=== PATIENT | female | born 1935 | race Caucasian/White ===

== ENCOUNTER 2020-03-21 15:41 | Inpatient (IN) | payer MEDICARE, MEDICAID ==
[~2020-03-21] VITALS: Ht 152.4 cm; Wt 57.8 kg
[~2020-03-21 15:41] MED LIST: ASPI-496 PO; ATEN25TA PO; CHOL100014 PO; CYAN1TAB29 PO; LOVA20TA2 PO; MEPE50TA PO; OMEG1CAP24 PO
--- NOTE | 2020-03-21 16:12 | NUR ---
NAYELI, RESIDENT BS FOR EXAM. PT HX PROVIDED BY PT'S TWO LADY FRIENDS. PT SEEN AT [facility] FOR PAIN, MULTIPLE TIMES - LAST VISIT MONDAY . BM MONDAY NOC. SAW PCP ON MONDAY. [facility] TODAY. REPORTED DECREASED APPETITE. TODAY: HAD PAIN LT SHOULDER, LT LOWER RIB PAIN - DENIES FALLING. LAST BM: (PER FRIENDS) OR (PER PT). INTERMITTENT DIZZINESS, WEAKNESS. DENIES SOB, DYSPNEA. [place] TX: IMAGING, EKG, IV 20G LAC, ASA 324MG, REGLAN 10MG, ZOFRAN 4MG, COMPAZINE, HEPARIN DRIP. HEPARIN DRIP HELD UPON ARRIVAL TO [facility] - WAS RUNNING AT 12U/KG/HR (6.5ML/HR) VIA PUMP. PT LIVES ALONE AT [facility].
[2020-03-21] MEDS ORDERED: NEXIUM (16:37)
[2020-03-21] MEDS ORDERED: LISI10TA2 PO (16:37)
[2020-03-21] MEDS ORDERED: ATOR20TA86 PO (16:37)
[2020-03-21] MEDS ORDERED: MAGNESIUM CHLORIDE PO (16:37)
--- NOTE | 2020-03-21 16:51 | NUR ---
PT ENDORSED TO BREAK RN. XR AT BS
--- NOTE | 2020-03-21 16:57 | NUR ---
X-RAY, LAB IN ROOM
[2020-03-21 17:25] LABS: MEAN CORPUSCULAR HEMOGLOBIN 31.8 pg (27.0-34.8); MEAN CORPUSCULAR HGB CONC 32.3 g/dL (32.4-35.8); MEAN PLATELET VOLUME 9.4 fL (7.4-10.4); PLATELET COUNT 106 x10^3/uL (130-400)
[2020-03-21 17:31] LABS: ALANINE AMINOTRANSFERASE 131 U/L (12-78); ALBUMIN 2.5 g/dL (3.4-5.0); ANION GAP 8 mmol/L (5-15); CALCIUM 8.3 mg/dL (8.5-10.1); CHLORIDE 107 mmol/L (98-107); CREATININE 0.82 mg/dL (0.55-1.02)
[2020-03-21 17:35] LABS: ALKALINE PHOSPHATASE 174 U/L (45-117); BILIRUBIN,TOTAL 0.6 mg/dL (0.2-1.0); TOTAL PROTEIN 6.1 g/dL (6.4-8.2)
[2020-03-21 17:50] LABS: MD YES
--- NOTE | 2020-03-21 17:51 | NUR ---
PT C/O BODY ACHES FROM BEING ON HOSPITAL BEDS "ALL DAY". HOB POSITION ADJUSTED TO PT PREFERENCE.
[2020-03-21 17:54] LABS: BAND#(MANUAL) 0.47 x10^3/uL; BANDS%(MANUAL) 3 % (0-7); EOS% (MANUAL) 9 % (1-7); LYMPH#(MANUAL) 1.24 x10^3/uL (1-3.4); LYMPHS% (MANUAL) 8 % (22-44); MONOS#(MANUAL) 1.09 x10^3/uL (0.3-2.7); MONOS% (MANUAL) 7 % (2-9); SEG#(MANUAL) 11.32 x10^3/uL (1.8-6.8); SEGS% (MANUAL) 73 % (42-75)
[2020-03-21 17:56] LABS: ANISOCYTOSIS 1+
--- NOTE | 2020-03-21 17:56 | NUR ---
FRIENDS, AND RIDE HOME: MADELYN PADMINI ( [birth year]) cell [phone], LILLYAlexei WASHINGTON (DAUGHTER OF MADELYN) ( 01/23/63) [phone].
[2020-03-21 17:57] LABS: OVALOCYTES 1+
[2020-03-21 17:58] LABS: PMNS WITH VACUOLES 1+; POLYCHROMASIA 1+; TEAR DROPS 1+
[2020-03-21 17:59] LABS: <PLATELET ESTIMATE> DECREASED; <PLT MORPHOLOGY> NORMAL PLT MORPH
--- NOTE | 2020-03-21 18:32 | NUR ---
PT REFUSED OFFER OF PAIN MED, AT THIS TIME.
--- NOTE | 2020-03-21 19:21 | NUR ---
CALLED UNIT TO GIVE REPORT; RECEIVING RN NOT CURRENTLY AVAILABLE.
[2020-03-21] MEDS ORDERED: POLYETHYLENE GLYCOL 17 GM PACKET PO PRN (19:30)
[2020-03-21] MEDS ORDERED: BISACODYL 10 MG SUPP PR PRN (19:30)
[2020-03-21] MEDS ORDERED: hydrALAzine 20 MG/ML, 1ML IVPush PRN (19:30)
--- NOTE | 2020-03-21 19:33 | NUR ---
CALLED UNIT AGAIN; RECEIVING RN NOT AVAILABLE. ASKED TO SPEAK TO OB/GYN PHYSICIAN - CURRENTLY UNAVAILABLE
--- NOTE | 2020-03-21 19:36 | NUR ---
CALLED ASSISTANT TEACHER PRIMARY - UNWILLING TO TAKE REPORT, WILL HAVE RECEIVING RN CALL ED.
--- NOTE | 2020-03-21 19:40 | NUR ---
PT REPORT TO VICKI DESAI FOR ROOM [phone]
[2020-03-21] MEDS ORDERED: NITROGLYCERIN 0.4 MG/SPRAY SL PRN (20:00)
[2020-03-21 20:12] VITALS: BP 158/78
[2020-03-21] MEDS ORDERED: LISINOPRIL MC SCH (20:30)
[2020-03-21] MEDS ORDERED: ATORVASTATIN 20 MG TABLET PO SCH (21:00)
[2020-03-21] MEDS: NICOTINE 14MG/24 HR PATCH.TD24 TD SCH (23:19)
[2020-03-21 23:32] LABS: TROPONIN I 0.968 ng/mL (0.000-0.045)
[2020-03-22 02:21] VITALS: BP 155/82
[2020-03-22 02:44] LABS: MICROSCOPIC NOT IND
[2020-03-22 05:32] LABS: MEAN CORPUSCULAR HEMOGLOBIN 31.5 pg (27.0-34.8); MEAN CORPUSCULAR HGB CONC 32.2 g/dL (32.4-35.8); MEAN PLATELET VOLUME 8.6 fL (7.4-10.4); PLATELET COUNT 117 x10^3/uL (130-400); RED CELL DISTRIBUTION WIDTH 14.1 % (9.6-15.2)
[2020-03-22 05:46] LABS: ALBUMIN 2.4 g/dL (3.4-5.0); CALCIUM 8.4 mg/dL (8.5-10.1); CHLORIDE 109 mmol/L (98-107)
[2020-03-22 05:53] LABS: ALANINE AMINOTRANSFERASE 101 U/L (12-78); ANION GAP 6 mmol/L (5-15); BILIRUBIN,TOTAL 0.5 mg/dL (0.2-1.0); CHOL/HDL RATIO 3.6; CHOLESTEROL, TOTAL 115 mg/dL (140-239); CREATININE 0.81 mg/dL (0.55-1.02); HDL CHOL % 28 % (28-40); HDL CHOLESTEROL (DIRECT) 32 mg/dL (40-60); LDL CHOLESTEROL,CALCULATED 56 mg/dL (54-169); LDL/HDL RATIO 1.8 (0.5-3.0); TOTAL PROTEIN 5.7 g/dL (6.4-8.2); TRIGLYCERIDES 133 mg/dL (50-200); TROPONIN I 0.707 ng/mL (0.000-0.045); VLDL CHOLESTEROL 27 mg/dL (0-25)
[2020-03-22 05:54] LABS: BASOPHILS # (AUTO) 0.05 x10^3/uL (0-0.1); BASOPHILS % (AUTO) 0 % (0-1); EOSINOPHILS # (AUTO) 1.59 x10^3/uL (0-0.4); EOSINOPHILS % (AUTO) 9 % (1-7); LYMPHOCYTES % (AUTO) 8 % (22-44); MD SCAN; MONOCYTES # (AUTO) 1.38 x10^3/uL (0.2-0.8); MONOCYTES % (AUTO) 8 % (2-9); NEUTROPHILS # (AUTO) 12.55 x10^3/uL (1.8-6.8); NEUTROPHILS % (AUTO) 74 % (42-75)
[2020-03-22 05:59] LABS: ALKALINE PHOSPHATASE 149 U/L (45-117); PREALBUMIN 4.1 mg/dL (20.0-40.0)
[2020-03-22] MEDS: ATENOLOL 25 MG TABLET PO SCH (06:08)
[2020-03-22 06:52] VITALS: BP 146/78
[2020-03-22] MEDS ORDERED: OMEGA-3/FISH OIL CAPSULE PO SCH (09:00)
[2020-03-22] MEDS: LACTOBACILLUS CHEW TABLET PO SCH ×3 (10:19→22:15)
[2020-03-22] MEDS: CHOLECALCIFEROL 1,000 UNIT TABLET PO SCH (10:20)
[2020-03-22] MEDS: SENNA/DOCUSATE TABLET PO SCH (10:20)
[2020-03-22] MEDS: CYANOCOBALAMIN 1,000 MCG TABLET PO SCH (10:20)
[2020-03-22] MEDS: ASPIRIN 81 MG TABLET EC PO SCH (10:20)
[2020-03-22] MEDS: LISINOPRIL 20 MG TABLET PO SCH (10:21)
[2020-03-22] MEDS: LIDODERM REMOVE PATCH NOTE XX SCH (10:21)
[2020-03-22] MEDS: FOLIC ACID 1 MG TABLET PO SCH (10:24)
[2020-03-22] MEDS: OMEGA-3/FISH OIL CAPSULE PO SCH (10:27)
[2020-03-22] MEDS: CEFTRIAXONE PMX 1GM/50ML 50 ML IV SCH (10:29)
[2020-03-22] MEDS: SODIUM CHLORIDE 0.9% 1,000 ML IV SCH ×3 (10:29→22:50)
[2020-03-22] MEDS: METRONIDAZOLE PMX 500MG/100ML 100 ML IV SCH ×3 (11:29→22:50)
[2020-03-22 12:45] VITALS: BP 124/80
[2020-03-22 20:37] VITALS: BP 120/74
[2020-03-22] MEDS: NICOTINE 14MG/24 HR PATCH.TD24 TD SCH (22:15)
[2020-03-22] MEDS: ATORVASTATIN 20 MG TABLET PO SCH (22:16)
[2020-03-22] MEDS: MELATONIN 5 MG TABLET PO PRN (22:55)
[2020-03-23] MEDS: MORPHINE SULFATE 4 MG/ML, 1ML IV PRN (01:11)
[2020-03-23 03:06] VITALS: BP 125/72
[2020-03-23] MEDS: ATENOLOL 25 MG TABLET PO SCH (06:13)
[2020-03-23] MEDS: METRONIDAZOLE PMX 500MG/100ML 100 ML IV SCH ×3 (06:14→21:47)
[2020-03-23 06:41] VITALS: BP 116/60
[2020-03-23 08:01] LABS: ALANINE AMINOTRANSFERASE 123 U/L (12-78); ALBUMIN 2.3 g/dL (3.4-5.0); ANION GAP 6 mmol/L (5-15); CALCIUM 8.1 mg/dL (8.5-10.1); CHLORIDE 109 mmol/L (98-107); CREATININE 0.68 mg/dL (0.55-1.02)
[2020-03-23 08:04] LABS: ALKALINE PHOSPHATASE 170 U/L (45-117); BILIRUBIN,TOTAL 0.7 mg/dL (0.2-1.0); MEAN CORPUSCULAR HEMOGLOBIN 31.8 pg (27.0-34.8); RED BLOOD COUNT 3.48 x10^6/uL (3.82-5.3); RED CELL DISTRIBUTION WIDTH 14.1 % (9.6-15.2); TOTAL PROTEIN 5.8 g/dL (6.4-8.2)
[2020-03-23 08:25] LABS: ANISOCYTOSIS 1+; BASOPHILS # (AUTO) 0.03 x10^3/uL (0-0.1); BASOPHILS % (AUTO) 0 % (0-1); EOSINOPHILS % (AUTO) 6 % (1-7); LYMPHOCYTES # (AUTO) 1.28 x10^3/uL (1-3.4); LYMPHOCYTES % (AUTO) 7 % (22-44); MD MORPH REVIEW ONLY; MEAN PLATELET VOLUME 8.7 fL (7.4-10.4); MONOCYTES # (AUTO) 1.47 x10^3/uL (0.2-0.8); MONOCYTES % (AUTO) 9 % (2-9); NEUTROPHILS # (AUTO) 13.51 x10^3/uL (1.8-6.8); NEUTROPHILS % (AUTO) 78 % (42-75); PLATELET COUNT 92 x10^3/uL (130-400)
[2020-03-23 08:26] LABS: <PLATELET ESTIMATE> DECREASED; <PLT MORPHOLOGY> NORMAL PLT MORPH; OVALOCYTES 1+; PMNS WITH VACUOLES 1+; POLYCHROMASIA 1+
[2020-03-23] MEDS: ASPIRIN 81 MG TABLET EC PO SCH (08:34)
[2020-03-23] MEDS: LISINOPRIL 20 MG TABLET PO SCH (08:34)
[2020-03-23] MEDS: FOLIC ACID 1 MG TABLET PO SCH (08:34)
[2020-03-23] MEDS: CYANOCOBALAMIN 1,000 MCG TABLET PO SCH (08:34)
[2020-03-23] MEDS: CHOLECALCIFEROL 1,000 UNIT TABLET PO SCH (08:34)
[2020-03-23] MEDS: OMEGA-3/FISH OIL CAPSULE PO SCH ×2 (08:34→08:40)
[2020-03-23] MEDS: LIDODERM REMOVE PATCH NOTE XX SCH (08:34)
[2020-03-23] MEDS: LACTOBACILLUS CHEW TABLET PO SCH ×3 (08:34→20:00)
[2020-03-23] MEDS: SENNA/DOCUSATE TABLET PO SCH (08:34)
[2020-03-23] MEDS ORDERED: OMEGA-3/FISH OIL CAPSULE PO SCH (09:00)
[2020-03-23] MEDS: CEFTRIAXONE PMX 1GM/50ML 50 ML IV SCH (10:08)
[2020-03-23] MEDS: SODIUM CHLORIDE 0.9% 1,000 ML IV SCH ×2 (11:51→23:43)
[2020-03-23 12:01] VITALS: BP 114/73
[2020-03-23] MEDS: CLOPIDOGREL 75 MG TABLET PO SCH (13:35)
[2020-03-23 18:51] VITALS: BP 134/80
[2020-03-23] MEDS: ATORVASTATIN 20 MG TABLET PO SCH (20:00)
[2020-03-23] MEDS: NICOTINE 14MG/24 HR PATCH.TD24 TD SCH (21:47)
[2020-03-23] MEDS: MELATONIN 5 MG TABLET PO PRN (23:40)
[2020-03-24] VITALS: BP 120/53
[2020-03-24] MEDS: ONDANSETRON 2MG/ML, 2ML IVPush PRN ×2 (03:36→09:10)
[2020-03-24 05:53] LABS: MEAN CORPUSCULAR HEMOGLOBIN 32.5 pg (27.0-34.8); MEAN CORPUSCULAR HGB CONC 33.1 g/dL (32.4-35.8); PLATELET COUNT 107 x10^3/uL (130-400); RED BLOOD COUNT 3.37 x10^6/uL (3.82-5.3); RED CELL DISTRIBUTION WIDTH 14.2 % (9.6-15.2)
[2020-03-24 06:00] LABS: ALBUMIN 2.1 g/dL (3.4-5.0); ANION GAP 6 mmol/L (5-15); CALCIUM 7.8 mg/dL (8.5-10.1); CHLORIDE 111 mmol/L (98-107); CREATININE 0.66 mg/dL (0.55-1.02)
[2020-03-24] MEDS: ATENOLOL 25 MG TABLET PO SCH (06:00)
[2020-03-24] MEDS: METRONIDAZOLE PMX 500MG/100ML 100 ML IV SCH (06:00)
[2020-03-24 06:02] LABS: ALANINE AMINOTRANSFERASE 88 U/L (12-78); ALKALINE PHOSPHATASE 150 U/L (45-117); BILIRUBIN,TOTAL 0.6 mg/dL (0.2-1.0); TOTAL PROTEIN 5.2 g/dL (6.4-8.2)
[2020-03-24 06:40] LABS: BAND#(MANUAL) 2.04 x10^3/uL; BANDS%(MANUAL) 11 % (0-7); EOS#(MANUAL) 0.93 x10^3/uL (0.0-0.4); EOS% (MANUAL) 5 % (1-7); LYMPH#(MANUAL) 0.74 x10^3/uL (1-3.4); LYMPHS% (MANUAL) 4 % (22-44); MD YES; MONOS#(MANUAL) 0.93 x10^3/uL (0.3-2.7); MONOS% (MANUAL) 5 % (2-9); PMNS WITH VACUOLES 1+; SEG#(MANUAL) 13.88 x10^3/uL (1.8-6.8); SEGS% (MANUAL) 75 % (42-75)
[2020-03-24 06:45] LABS: ANISOCYTOSIS 1+
[2020-03-24 06:51] LABS: <PLATELET ESTIMATE> DECREASED; <PLT MORPHOLOGY> NORMAL PLT MORPH
[2020-03-24 06:52] VITALS: BP 107/69
[2020-03-24] MEDS: LIDODERM REMOVE PATCH NOTE XX SCH (08:00)
[2020-03-24] MEDS: LISINOPRIL 20 MG TABLET PO SCH (09:10)
[2020-03-24] MEDS: CEFTRIAXONE PMX 1GM/50ML 50 ML IV SCH (09:10)
[2020-03-24] MEDS: ASPIRIN 81 MG TABLET EC PO SCH (09:11)
[2020-03-24] MEDS: FOLIC ACID 1 MG TABLET PO SCH (09:11)
[2020-03-24] MEDS: CHOLECALCIFEROL 1,000 UNIT TABLET PO SCH (09:11)
[2020-03-24] MEDS: SENNA/DOCUSATE TABLET PO SCH (09:11)
[2020-03-24] MEDS: OMEGA-3/FISH OIL CAPSULE PO SCH (09:12)
[2020-03-24] MEDS: CLOPIDOGREL 75 MG TABLET PO SCH (09:12)
[2020-03-24] MEDS: LACTOBACILLUS CHEW TABLET PO SCH ×3 (09:12→21:06)
[2020-03-24] MEDS: CYANOCOBALAMIN 1,000 MCG TABLET PO SCH (09:12)
[2020-03-24] MEDS: SODIUM CHLORIDE 0.9% 1,000 ML IV SCH ×2 (10:37→21:00)
[2020-03-24 12:40] VITALS: BP 113/70
[2020-03-24] MEDS: PIPERACILLIN/TAZO/PMX 3.375GM 50 ML IV SCH ×2 (15:12→22:56)
[2020-03-24] MEDS: PANTOPRAZOLE 40 MG IV IVPush SCH (15:13)
[2020-03-24 17:58] LABS: MICROSCOPIC AUTO
[2020-03-24 21:00] VITALS: BP 124/77
[2020-03-24] MEDS: NICOTINE 14MG/24 HR PATCH.TD24 TD SCH (21:06)
[2020-03-24] MEDS: MELATONIN 5 MG TABLET PO PRN (21:06)
[2020-03-24] MEDS: ATORVASTATIN 20 MG TABLET PO SCH (21:06)
[2020-03-25 02:00] VITALS: BP 123/75
[2020-03-25 05:40] LABS: MEAN CORPUSCULAR HEMOGLOBIN 31.6 pg (27.0-34.8); MEAN PLATELET VOLUME 8.5 fL (7.4-10.4); PLATELET COUNT 101 x10^3/uL (130-400); RED BLOOD COUNT 3.33 x10^6/uL (3.82-5.3); RED CELL DISTRIBUTION WIDTH 14.3 % (9.6-15.2)
[2020-03-25 06:01] LABS: ALBUMIN 1.9 g/dL (3.4-5.0); ANION GAP 10 mmol/L (5-15); CALCIUM 7.6 mg/dL (8.5-10.1); CHLORIDE 114 mmol/L (98-107)
[2020-03-25 06:07] LABS: ALANINE AMINOTRANSFERASE 62 U/L (12-78); ALKALINE PHOSPHATASE 142 U/L (45-117); BILIRUBIN,TOTAL 0.6 mg/dL (0.2-1.0); CREATININE 0.73 mg/dL (0.55-1.02); TOTAL PROTEIN 4.9 g/dL (6.4-8.2)
[2020-03-25 06:22] LABS: BASOPHILS # (AUTO) 0.01 x10^3/uL (0-0.1); BASOPHILS % (AUTO) 0 % (0-1); EOSINOPHILS # (AUTO) 1.44 x10^3/uL (0-0.4); EOSINOPHILS % (AUTO) 8 % (1-7); LYMPHOCYTES # (AUTO) 1.19 x10^3/uL (1-3.4); LYMPHOCYTES % (AUTO) 6 % (22-44); MD SCAN; MONOCYTES # (AUTO) 1.37 x10^3/uL (0.2-0.8); MONOCYTES % (AUTO) 7 % (2-9); NEUTROPHILS % (AUTO) 79 % (42-75)
[2020-03-25] MEDS: ATENOLOL 25 MG TABLET PO SCH (06:25)
[2020-03-25] MEDS: PIPERACILLIN/TAZO/PMX 3.375GM 50 ML IV SCH ×3 (06:25→23:36)
[2020-03-25 07:01] VITALS: BP 109/69
[2020-03-25] MEDS: LIDODERM REMOVE PATCH NOTE XX SCH (08:00)
[2020-03-25] MEDS: CHOLECALCIFEROL 1,000 UNIT TABLET PO SCH (08:26)
[2020-03-25] MEDS: LACTOBACILLUS CHEW TABLET PO SCH ×3 (08:27→21:45)
[2020-03-25] MEDS: CLOPIDOGREL 75 MG TABLET PO SCH (08:27)
[2020-03-25] MEDS: SENNA/DOCUSATE TABLET PO SCH (08:27)
[2020-03-25] MEDS: CYANOCOBALAMIN 1,000 MCG TABLET PO SCH (08:27)
[2020-03-25] MEDS: OMEGA-3/FISH OIL CAPSULE PO SCH (08:27)
[2020-03-25] MEDS: FOLIC ACID 1 MG TABLET PO SCH (08:28)
[2020-03-25] MEDS: LISINOPRIL 20 MG TABLET PO SCH (08:28)
[2020-03-25] MEDS: ASPIRIN 81 MG TABLET EC PO SCH (08:28)
[2020-03-25] MEDS: PANTOPRAZOLE 40 MG IV IVPush SCH (08:29)
[2020-03-25] MEDS: SODIUM CHLORIDE 0.9% 1,000 ML IV SCH ×2 (08:51→19:00)
[2020-03-25 12:37] VITALS: BP 118/75
[2020-03-25 19:28] VITALS: BP 121/71
[2020-03-25] MEDS: ATORVASTATIN 20 MG TABLET PO SCH (21:45)
[2020-03-25] MEDS: NICOTINE 14MG/24 HR PATCH.TD24 TD SCH (21:46)
[2020-03-26 01:46] VITALS: BP 117/68
[2020-03-26] MEDS: ATENOLOL 25 MG TABLET PO SCH (05:50)
[2020-03-26 06:52] VITALS: BP 118/77
[2020-03-26] MEDS: LIDODERM REMOVE PATCH NOTE XX SCH (07:17)
[2020-03-26] MEDS: PANTOPRAZOLE 40 MG IV IVPush SCH (07:54)
[2020-03-26] MEDS: ASPIRIN 81 MG TABLET EC PO SCH (07:54)
[2020-03-26] MEDS: OMEGA-3/FISH OIL CAPSULE PO SCH (07:54)
[2020-03-26] MEDS: PIPERACILLIN/TAZO/PMX 3.375GM 50 ML IV SCH (07:54)
[2020-03-26] MEDS: CHOLECALCIFEROL 1,000 UNIT TABLET PO SCH (07:54)
[2020-03-26] MEDS: LACTOBACILLUS CHEW TABLET PO SCH ×3 (07:54→21:08)
[2020-03-26] MEDS: FOLIC ACID 1 MG TABLET PO SCH (07:55)
[2020-03-26] MEDS: LISINOPRIL 20 MG TABLET PO SCH (07:55)
[2020-03-26] MEDS: SENNA/DOCUSATE TABLET PO SCH (07:55)
[2020-03-26] MEDS: CYANOCOBALAMIN 1,000 MCG TABLET PO SCH (07:56)
[2020-03-26] MEDS: CLOPIDOGREL 75 MG TABLET PO SCH (07:56)
[2020-03-26] MEDS: SODIUM CHLORIDE 0.9% 1,000 ML IV SCH (08:01)
[2020-03-26 13:10] VITALS: BP 152/77
[2020-03-26] MEDS ORDERED: LORazepam 1MG TABLET PO PRN (14:00)
[2020-03-26 18:41] VITALS: BP 113/76
[2020-03-26] MEDS: NICOTINE 14MG/24 HR PATCH.TD24 TD SCH (21:08)
[2020-03-26] MEDS: ATORVASTATIN 20 MG TABLET PO SCH (21:08)
[2020-03-27 00:14] VITALS: BP 128/82
[2020-03-27 05:14] VITALS: BP 120/76
[2020-03-27] MEDS: ATENOLOL 25 MG TABLET PO SCH (05:15)
[2020-03-27 06:44] VITALS: BP 131/72
[2020-03-27] MEDS: LIDODERM REMOVE PATCH NOTE XX SCH (08:00)
[2020-03-27] MEDS: SENNA/DOCUSATE TABLET PO SCH (09:00)
[2020-03-27] MEDS: ASPIRIN 81 MG TABLET EC PO SCH (09:22)
[2020-03-27] MEDS: CYANOCOBALAMIN 1,000 MCG TABLET PO SCH (09:22)
[2020-03-27] MEDS: LISINOPRIL 20 MG TABLET PO SCH (09:23)
[2020-03-27] MEDS: LACTOBACILLUS CHEW TABLET PO SCH ×3 (09:23→21:41)
[2020-03-27] MEDS: FOLIC ACID 1 MG TABLET PO SCH (09:23)
[2020-03-27] MEDS: CLOPIDOGREL 75 MG TABLET PO SCH (09:23)
[2020-03-27 12:20] VITALS: BP 121/78
[2020-03-27 19:38] VITALS: BP 119/82
[2020-03-27] MEDS: MELATONIN 5 MG TABLET PO PRN (21:40)
[2020-03-27] MEDS: ATORVASTATIN 20 MG TABLET PO SCH (21:41)
[2020-03-27] MEDS: NICOTINE 14MG/24 HR PATCH.TD24 TD SCH (21:41)
[2020-03-27] MEDS ORDERED: ACETAMINOPHEN 325 MG TABLET PO PRN (22:00)
[2020-03-27] MEDS ORDERED: ACETAMINOPHEN 650 MG SUPP PR PRN (22:00)
[2020-03-28 00:21] VITALS: BP 126/83
[2020-03-28] MEDS: ATENOLOL 25 MG TABLET PO SCH (06:33)
[2020-03-28 07:41] VITALS: BP 146/77
[2020-03-28] MEDS: LIDODERM REMOVE PATCH NOTE XX SCH (08:00)
[2020-03-28] MEDS: SENNA/DOCUSATE TABLET PO SCH (09:17)
[2020-03-28] MEDS: CLOPIDOGREL 75 MG TABLET PO SCH (09:18)
[2020-03-28] MEDS: LACTOBACILLUS CHEW TABLET PO SCH (09:18)
[2020-03-28] MEDS: LISINOPRIL 20 MG TABLET PO SCH (09:18)
[2020-03-28] MEDS: ASPIRIN 81 MG TABLET EC PO SCH (09:18)
[2020-03-28] MEDS: SUCRALFATE 1 GM/10 ML UDC PO SCH ×3 (11:00→20:15)
[2020-03-28 12:41] VITALS: BP 129/78
[2020-03-28] MEDS: OXYcodone 5 MG/5 ML ORAL.SOL UDC PO PRN ×2 (18:32→22:44)
[2020-03-28 18:50] VITALS: BP 128/63
[2020-03-28] MEDS: NICOTINE 14MG/24 HR PATCH.TD24 TD SCH (20:15)
[2020-03-29 02:24] VITALS: BP 118/61
[2020-03-29 06:21] VITALS: BP 113/70
[2020-03-29] MEDS: LIDODERM REMOVE PATCH NOTE XX SCH (08:03)
[2020-03-29] MEDS: OXYcodone 5 MG/5 ML ORAL.SOL UDC PO PRN ×3 (08:06→21:49)
[2020-03-29] MEDS: PANTOPRAZOLE 40MG TABLET PO SCH (08:14)
[2020-03-29] MEDS: SENNA/DOCUSATE TABLET PO SCH (08:14)
[2020-03-29] MEDS: SUCRALFATE 1 GM/10 ML UDC PO SCH (08:14)
[2020-03-29] MEDS ORDERED: SUCRALFATE 1 GM/10 ML UDC PO PRN (09:00)
[2020-03-29] MEDS ORDERED: ONDANSETRON ODT 4 MG PO PRN (09:00)
[2020-03-29] MEDS ORDERED: SENNA/DOCUSATE TABLET PO PRN (09:00)
[2020-03-29] MEDS ORDERED: ASPIRIN 325 MG TABLET EC PO ONE (09:00)
[2020-03-29 13:17] VITALS: BP 121/76
[2020-03-29 19:41] VITALS: BP 110/72
[2020-03-29] MEDS: NICOTINE 14MG/24 HR PATCH.TD24 TD SCH (20:10)
[2020-03-29] MEDS ORDERED: ATORVASTATIN 40 MG TABLET PO SCH (21:00)
[2020-03-29] MEDS: LIDODERM 5% PATCH TD PRN (22:11)
[2020-03-29] MEDS: MORPHINE SULFATE 4 MG/ML, 1ML IV PRN (23:25)
[2020-03-30 01:18] VITALS: BP 121/77
[2020-03-30] MEDS: MORPHINE SULFATE 4 MG/ML, 1ML IV PRN ×2 (04:17→12:16)
[2020-03-30] MEDS ORDERED: ASPIRIN 81 MG TABLET EC PO SCH (06:00)
[2020-03-30 07:11] VITALS: BP 125/76
[2020-03-30] MEDS ORDERED: morphine SULFATE ORAL.CONC 20 MG/ML PO PRN ×3 (08:30→19:30)
[2020-03-30] MEDS: PANTOPRAZOLE 40MG TABLET PO SCH (09:52)
[2020-03-30] MEDS: LIDODERM REMOVE PATCH NOTE XX SCH (09:53)
[2020-03-30] MEDS ORDERED: LORazepam INTENSOL 2 MG/ML BC PRN (12:30)
[2020-03-30] MEDS: SCOPOLAMINE 1MG PATCH TD SCH (14:04)
[2020-03-30] MEDS: FENTANYL 25 MCG PATCH TD SCH (14:05)
[2020-03-30] MEDS: NICOTINE 14MG/24 HR PATCH.TD24 TD SCH (19:41)
[2020-03-30] MEDS: LIDODERM 5% PATCH TD PRN (19:41)
[2020-03-30] MEDS: LORazepam INTENSOL 2 MG/ML BC PRN (19:41)
[2020-03-31] MEDS: LIDODERM REMOVE PATCH NOTE XX SCH (08:00)
[2020-03-31] MEDS: PANTOPRAZOLE 40MG TABLET PO SCH (09:00)
[2020-03-31] MEDS: morphine SULFATE ORAL.CONC 20 MG/ML PO PRN ×2 (12:09→23:06)
[2020-03-31] MEDS: LORazepam INTENSOL 2 MG/ML BC PRN (18:21)
[2020-03-31] MEDS: NICOTINE 14MG/24 HR PATCH.TD24 TD SCH (19:56)
[2020-04-01] MEDS: LIDODERM REMOVE PATCH NOTE XX SCH (08:00)
[2020-04-01] MEDS: NICOTINE 14MG/24 HR PATCH.TD24 TD SCH (19:44)
[2020-04-01] MEDS: LORazepam INTENSOL 2 MG/ML BC PRN (19:46)
[2020-04-02] MEDS: LIDODERM REMOVE PATCH NOTE XX SCH (08:00)
[2020-04-02] MEDS: SCOPOLAMINE 1MG PATCH TD SCH (15:33)
[2020-04-02] MEDS: FENTANYL 25 MCG PATCH TD SCH (15:35)
[2020-04-02] MEDS: NICOTINE 14MG/24 HR PATCH.TD24 TD SCH (21:00)
[2020-04-02] MEDS: LORazepam INTENSOL 2 MG/ML BC PRN (21:58)
[2020-04-02] MEDS: morphine SULFATE ORAL.CONC 20 MG/ML PO PRN (21:59)
[2020-04-03] MEDS: LORazepam INTENSOL 2 MG/ML BC PRN ×3 (02:33→10:19)
[2020-04-03] MEDS: morphine SULFATE ORAL.CONC 20 MG/ML PO PRN ×3 (02:33→11:23)
[2020-04-03] MEDS: LIDODERM REMOVE PATCH NOTE XX SCH (07:26)
[2020-04-03] MEDS ORDERED: ATROPINE OPHTH SOLN 1%, 2ML BC PRN (09:30)
== END 2020-04-03 13:20 | disposition expired | DRG 682 ==
LOC: ED 17:59 → EDIP 18:05 → OBSVTOIN 18:05 → INTOOBSV 18:05 → 5SO 20:00 → 3WST 03-26 23:36 → 4NW 03-31 12:54
PROVIDERS: ADMIT Internal Medicine; ATTEND Family Medicine
DX: N17.0 Acute kidney failure with tubular necrosis (principal); I21.A1 Myocardial infarction type 2; G93.41 Metabolic encephalopathy; G93.6 Cerebral edema; I63.9 Cerebral infarction, unspecified; C78.7 Secondary malignant neoplasm of liver and intrahepatic bile duct; M48.56XA Collapsed vertebra, not elsewhere classified, lumbar region, initial encounter for fracture; N28.0 Ischemia and infarction of kidney; E44.0 Moderate protein-calorie malnutrition; G81.91 Hemiplegia, unspecified affecting right dominant side; D50.9 Iron deficiency anemia, unspecified; D69.6 Thrombocytopenia, unspecified; I73.9 Peripheral vascular disease, unspecified; E78.5 Hyperlipidemia, unspecified; I10 Essential (primary) hypertension; E83.51 Hypocalcemia; F17.210 Nicotine dependence, cigarettes, uncomplicated; I70.0 Atherosclerosis of aorta; Z66 Do not resuscitate; I46.9 Cardiac arrest, cause unspecified; I08.3 Combined rheumatic disorders of mitral, aortic and tricuspid valves; E66.3 Overweight; R29.810 Facial weakness; C80.1 Malignant (primary) neoplasm, unspecified; D73.5 Infarction of spleen; D63.8 Anemia in other chronic diseases classified elsewhere; E27.8 Other specified disorders of adrenal gland; K52.9 Noninfective gastroenteritis and colitis, unspecified; E86.0 Dehydration; D72.825 Bandemia; Z20.828 Contact with and (suspected) exposure to other viral communicable diseases; K59.00 Constipation, unspecified; R74.0 Nonspecific elevation of levels of transaminase and lactic acid dehydrogenase [LDH]; Z90.89 Acquired absence of other organs; Z88.6 Allergy status to analgesic agent; Z88.5 Allergy status to narcotic agent; Z68.24 Body mass index [BMI] 24.0-24.9, adult; Z79.899 Other long term (current) drug therapy; N26.1 Atrophy of kidney (terminal); R47.81 Slurred speech
CPT/HCPCS: 36415; 71045; 80053; 80061; 81001; 81003; 82306; 82330; 83690; 84134; 84145; 84443; 84484; 85025; 86480; 87040; 87086; 87635; 93005; 93306; 93922; G0378; J0696; J2405; J2543; C9113; J2270; J7030